=== PATIENT | female | born 1955 | race American Indian/Alaskan Native ===

== ENCOUNTER 2016-06-23 07:34 | Outpatient (CLI) | payer MEDICARE ==
[2016-06-23] MEDS ORDERED: LASIX ONE (08:12)
[2016-06-23] MEDS ORDERED: LASIX IV ONE (08:19)
--- NOTE | 2016-06-23 11:35 | Cat Scan Report ---
CT OF THE ABDOMEN AND PELVIS WITHOUT CONTRAST: FINDINGS: The liver and spleen are normal except for a few granulomatous calcifications. The pancreas is unremarkable. The gallbladder appears normal. There are multiple bilateral renal calcifications, several of which are in the collecting elements measuring 2-4 mm in diameter although coexistent nephrocalcinosis is suspected. No ureteral stones or hydronephrosis is present. There are no pelvic masses or abnormal fluid collections. Numerous diverticula are seen in the left colon, but no radiographic evidence of diverticulitis is seen. A tiny ventral hernia containing fat is noted. No suspicious bony findings are seen. IMPRESSION: 1. Multiple small bilateral renal stones without obstruction. Coexistent nephrocalcinosis is present. 2. Diverticulosis coli.
--- NOTE | 2016-06-23 14:18 | Nuclear Medicine Report ---
NUCLEAR MEDICINE RENAL SCAN CAPTOPRIL/LASIX: HISTORY: Chronic kidney disease stage II, hematuria. TECHNIQUE: Posterior flow and function images were obtained after 5 mCi of technetium 99m MAG3. 20 mg of IV Lasix was administered at 26 minutes. COMPARISON: CT abdomen and pelvis without contrast dated 06/23/16. FINDINGS: The posterior flow and function images demonstrate decreased flow and function in the left kidney compared to the right. The left kidney appears slightly atrophic. CT also demonstrates diffuse cortical thinning in the superior left kidney. The renogram curves demonstrate normal uptake and excretion of the radiotracer in the right kidney. There is no convincing evidence for obstruction. The renogram curve in the left kidney is slightly blunted but otherwise within normal limits. No obstructive pattern. Split function measures 67% right kidney and 33% left kidney. IMPRESSION: Slightly atrophic left kidney with decreased flow and function, as outlined above. Split function measures 67% right kidney and 33% left kidney. No renal obstruction is appreciated.
== END 2016-06-23 07:35 | disposition home or self-care (01) ==
LOC: NM 07:34
PROVIDERS: ATTEND Urology
DX: N18.2 Chronic kidney disease, stage 2 (mild) (principal); R31.1 Benign essential microscopic hematuria; D73.89 Other diseases of spleen; K76.89 Other specified diseases of liver; N28.89 Other specified disorders of kidney and ureter; K57.30 Diverticulosis of large intestine without perforation or abscess without bleeding; K43.9 Ventral hernia without obstruction or gangrene; N26.1 Atrophy of kidney (terminal); E83.59 Other disorders of calcium metabolism; N29 Other disorders of kidney and ureter in diseases classified elsewhere; R10.9 Unspecified abdominal pain
CPT/HCPCS: 74176; 78708; A9562; J1940